=== PATIENT | female | born 1980 | race African-American/Black ===

== ENCOUNTER → 2016-09-18 | Outpatient (CLI) | payer OTHER ==
[2015-05-17 01:00] VITALS: BP 162/98
[~2016-09-18] MED LIST: AMLO2.5T PO; HYDR-2666 PO; METF500T4 PO; NIFE60TA PO; NITR100C62 PO; VALS40TA2 PO
[2016-09-19 18:10] LABS: PROTEIN 24 HR UR 127.7 mg/24 hr (30.0-150.0)
== END | disposition home or self-care (01) ==
LOC: LAB 12:14
PROVIDERS: ATTEND Obstetrics & Gynecology
DX: Z32.01 Encounter for pregnancy test, result positive (principal); O13.9 Gestational [pregnancy-induced] hypertension without significant proteinuria, unspecified trimester
CPT/HCPCS: 36415; 82570; 84156

== ENCOUNTER → 2016-10-23 | Outpatient (CLI) | payer OTHER ==
[2016-10-07 14:53] VITALS: BP 149/96
--- NOTE | 2016-10-23 17:29 | RAD ---
EXAM: Obstetric ultrasound. HISTORY: No heart tones. COMPARISON: None. FINDINGS: Sonographic evaluation of the uterus and fetus was performed transabdominally. There is a single intrauterine fetus measuring 13 weeks 5 days by measurements. No cardiac motion is identified. The placenta is posterior. The cervix is closed and measures 4.1 cm. IMPRESSION: 1. No cardiac motion consistent with demise. These findings were called to Dr. Solorzano by the technologist at the time of the examination.
== END | disposition home or self-care (01) ==
LOC: US 16:26
PROVIDERS: ATTEND Obstetrics & Gynecology
DX: O09.90 Supervision of high risk pregnancy, unspecified, unspecified trimester (principal); E66.9 Obesity, unspecified
CPT/HCPCS: 76805

== ENCOUNTER 2016-10-26 07:51 | Day surgery (SDC) | payer OTHER ==
[~2016-10-26] VITALS: Ht 165.1 cm; Wt 116.1 kg
[~2016-10-26 07:51] MED LIST changes: +CLINDAMYCIN 600MG PREMIX 50 ML IV PRN; +FENTANYL PF 100 MCG/2 ML VIAL. IV PRN; +HYDROMORPHONE 2 MG/ML VIAL. IV PRN; +IV RINGERS,LACTATED 1000ML 1,000 ML IV SCH; +LIDOCAINE 1% 1 ML SYRINGE. ID PRN; -METF500T4 PO; +MORPHINE SULFATE 2 MG/ML DISP.SYRIN. IV PRN; -NIFE60TA PO; +ONDANSETRON PF 4 MG/2 ML VIAL. IV PRN; +OXYTOCIN 10 UNIT/ML VIAL. ONE; +PROCHLORPERAZINE 10 MG/2 ML VIAL. IV PRN; +VASOPRESSIN 20 UNIT/ML VIAL. ONE
[2016-10-26] MEDS ORDERED: METF500T4 PO (08:46)
[2016-10-26] MEDS ORDERED: NIFE60TA PO (08:46)
[2016-10-26] MEDS ORDERED: FENTANYL PF 100 MCG/2 ML VIAL. ONE (09:05)
[2016-10-26] MEDS ORDERED: FAMOTIDINE 20 MG/2 ML VIAL ONE (09:05)
[2016-10-26] MEDS ORDERED: LIDOCAINE 1% PF 5 ML VIAL. ONE (09:05)
[2016-10-26] MEDS ORDERED: ONDANSETRON PF 4 MG/2 ML VIAL. ONE (09:05)
[2016-10-26] MEDS ORDERED: DEXAMETHASONE SOD PHOS 20 MG/5 ML VIAL. ONE (09:05)
[2016-10-26] MEDS ORDERED: MIDAZOLAM HCL 2 MG/2 ML VIAL. ONE (09:05)
[2016-10-26] MEDS ORDERED: PROPOFOL 20 ML IV ONE (09:05)
[2016-10-26 09:10] LABS: BASO % 0 % (0-3); EOS % 1 % (0-3); HEMATOCRIT 35.2 % (36.0-47.0); HEMOGLOBIN 11.6 g/dL (12.0-15.5); LYMPH # 2.2 x10^3/uL (1.0-4.8); LYMPH % 21 % (24-48); MEAN CORPUSCULAR HEMOGLOBIN 27 pg (25-35); MEAN CORPUSCULAR HGB CONC 33 g/dL (31-37); MEAN CORPUSCULAR VOLUME 82 fL (79-100); MONO % 6 % (0-9); NEUT % 72 % (31-73); PLATELET COUNT 302 x10^3/uL (140-400); RED BLOOD COUNT 4.28 x10^6/uL (3.50-5.40); RED CELL DISTRIBUTION WIDTH 13.6 % (11.5-14.5); WHITE BLOOD COUNT 10.5 x10^3/uL (4.0-11.0)
[2016-10-26] MEDS ORDERED: SEVOFLURANE 16 TO 30 MINUTES. IH ONE (09:23)
[2016-10-26] MEDS ORDERED: OXYTOCIN 10 UNIT/ML VIAL. ONE (09:39)
--- NOTE | 2016-10-26 09:54 | PDOC ---
BRIEF OPERATIVE NOTE Pre-Op Diagnosis missed Post-Op Diagnosis same Procedure Performed Suction D&C Surgeon Dr. Solorzano Anesthesia Type: General Blood Loss 300 ml Specimens Obtained POC and blood products Findings 10 wks size uterus with missed Complications none Additional Remarks pt. ELVIRA Lamar Jr, MD Oct 26, 2016 09:54
--- NOTE | 2016-10-26 09:54 | DISCH ---
DISCHARGE INSTRUCTIONS Condition on Discharge Condition on Discharge: Stable Activity After Discharge Activity Instructions for Disc: Activity as tolerated Lifting Instructions after Dis: No heavy lifting Driving Instructions after Dis: Do not drive today Diet after Discharge Diet after Discharge: Diabetic No Calorie Level Contacting the DRMichela after DC Call your doctor for: Concerns you may have Follow-Up Follow up with: Dr. Solorzano in 1 week. ELVIRA SOLORZANO Jr, MD Oct 26, 2016 09:54
[2016-10-26] MEDS: FENTANYL PF 100 MCG/2 ML VIAL. IV PRN ×2 (09:58→10:03)
--- NOTE | 2016-10-26 10:34 | OP ---
DATE OF SURGERY: PREOPERATIVE DIAGNOSIS: Missed . POSTOPERATIVE DIAGNOSIS: Missed . PROCEDURE: Suction D and C. SURGEON: Dr. Solorzano. ANESTHESIA: GETA. ESTIMATED BLOOD LOSS: 300 mL. COMPLICATIONS: None. FINDINGS: A ____week size uterus with missed and products of conception with blood products. SUMMARY: A 36-year-old 5, para 4 and ____ weeks by sonogram, presented to clinic. She was found to have no cardiac activity. This was verified by Radiology sonogram. The patient was counseled on risks, benefits and expectations of suction D and C. She voiced a clear understanding to proceed. DESCRIPTION OF PROCEDURE: The patient was taken to surgery suite and placed in dorsal lithotomy position. She was prepped with Betadine, draped in sterile fashion. After adequate anesthesia, weighted speculum was placed vaginally. The anterior lip of the cervix grasped with a single tooth tenaculum. The cervix was then dilated with Catherine dilators up to size 11. A 12-tip curved curette was utilized and with the suction of 60 cm Hg. It was placed through the cervix and rotated in a circumferential manner, removing products of conception as well as blood products and blood clot. Sharp curettage took place until a fine gritty surface was palpated circumferentially. The suction curette was once again used and rotated in a circumferential manner. Suction curette was then removed. Uterus palpated firm. Single tooth tenaculum was removed. Weighted speculum was removed. The patient tolerated the procedure, was taken to recovery room in stable condition. Sponge and needle count correct x 3. ELVIRA SOLORZANO MD DR: DOROTA/trevor JOB#: [id number] / [id number]
[2016-10-26] MEDS ORDERED: OXYCODONE/APAP 5/325 TABLET. PO PRN (11:00)
[2016-10-26 11:10] VITALS: BP 153/92
--- NOTE | 2016-10-27 15:19 | PATHOLOGY ---
PATHOLOGY REPORT * * * * * * * * FINAL DIAGNOSIS: Uterine contents, suction D and C: - Products of conception, comprised of parts, placental membranous tissue, immature chorionic villi showing focal degenerative changes, and decidual tissue showing focal hemorrhage and necrosis. (JPM:; d/t: 10/27/16) REPORT ELECTRONICALLY SIGNED BY: Homero Hamilton M.D. DATE/TIME: 10/27/2016 15:18 * * * * * * * * GROSS PATHOLOGY: The specimen is received in formalin, labeled "Riya Valero and products of conception." Received is a 21.2 x 3.8 x 3.3 cm aggregate of pink-forde, membranous, and villous appearing soft tissue fragments admixed with clotted blood. Multiple parts are grossly identified, which are consistent with both arms, both legs, ribs, spine, intestines, and umbilical cord. Apple Picking Supervisor sections (not parts) are submitted in cassettes A1-A3. (TTL; 10/26/2016) INITIAL CPT CODE(S): A; 05060 Professional services performed by [facility] [place] [address] Technical services performed by [facility] at [address] [place] [address], [address], [place] [address]. SPECIMEN(S) RECEIVED: A.Products of conception CLINICAL HISTORY: Missed PATIENT: RIYA VALERO /AGE: 7 1980 (Age: 36) PATIENT #: [id number] ALT CASE #: SPECIMEN COLLECTION DATE: 10/26/2016 SPECIMEN RECEIVED DATE: 10/26/2016 [facility] - [address] [place] [address] - PHONE: [phone] * * * END OF REPORT * * *
== END 2016-10-26 11:15 | disposition home or self-care (01) ==
LOC: SURG 07:51
PROVIDERS: ATTEND Obstetrics & Gynecology
DX: O02.1 Missed abortion (principal); I10 Essential (primary) hypertension; E66.9 Obesity, unspecified; Z87.440 Personal history of urinary (tract) infections; E11.9 Type 2 diabetes mellitus without complications; F41.9 Anxiety disorder, unspecified; F32.9 Major depressive disorder, single episode, unspecified
CPT/HCPCS: 36415; 59820; 82947; 85027; 86850; 86900; 86901; J1100; J2250; J2405; J2590; J2704; J3010; J3490; S0028

== ENCOUNTER → 2018-05-28 | Outpatient (CLI) | payer OTHER ==
[~2018-05-28] MED LIST changes: -AMLO2.5T PO; +AMLO2.5T3 PO; -CLINDAMYCIN 600MG PREMIX 50 ML IV PRN; -FENTANYL PF 100 MCG/2 ML VIAL. IV PRN; -HYDR-2666 PO; +HYDR-2758 PO; -HYDROMORPHONE 2 MG/ML VIAL. IV PRN; -IV RINGERS,LACTATED 1000ML 1,000 ML IV SCH; -LIDOCAINE 1% 1 ML SYRINGE. ID PRN; +METF500T16 PO; -MORPHINE SULFATE 2 MG/ML DISP.SYRIN. IV PRN; +NIFE60TA PO; -ONDANSETRON PF 4 MG/2 ML VIAL. IV PRN; -OXYTOCIN 10 UNIT/ML VIAL. ONE; -PROCHLORPERAZINE 10 MG/2 ML VIAL. IV PRN; -VASOPRESSIN 20 UNIT/ML VIAL. ONE
--- NOTE | 2018-05-28 08:40 | RAD ---
Renal ultrasound, 05/28/2018: HISTORY: Hypertension The right kidney measures 11.0 cm in length while the left kidney measures 11.4 cm. There is no evidence of hydronephrosis or a renal mass. The renal parenchymal echogenicity is within normal limits. Limited views of the poorly distended urinary bladder show no abnormality. IMPRESSION: No significant renal abnormality is detected. Deep Doppler renal ultrasound, 05/28/2018: HISTORY: Hypertension Deep Doppler interrogation of the main renal arteries was performed including grayscale, color-flow and spectral Doppler analysis. The peak systolic velocity in the right main renal artery is 127 cm/s. The right renal artery to aortic velocity ratio is 1.04. On the left the peak systolic velocity is 88 cm/s. These findings do not suggest significant renal artery stenosis. No parvus/tardus phenomena is evident. IMPRESSION: No duplex evidence of significant main renal artery stenosis. Electronically signed by: Rafael De La Cruz MD (05/28/2018 8:37 AM) [facility]
== END | disposition home or self-care (01) ==
LOC: US 07:14
PROVIDERS: ATTEND Internal Medicine
DX: I10 Essential (primary) hypertension (principal)
CPT/HCPCS: 76770; 93975

== ENCOUNTER 2018-07-02 07:03 | Emergency (ER) | payer OTHER ==
[~2018-07-02] VITALS: Ht 165.1 cm; Wt 90.7 kg
[2018-07-02 07:48] LABS: U PREG PATIENT NEGATIVE (NEG)
--- NOTE | 2018-07-02 07:56 | PHYS DOC ---
Past Medical History Past Medical History: Anxiety, Depression, Diabetes-Type II, Hypertension Additional Past Medical Histor: PTSD Past Surgical History: Gastric Bypass Additional Past Surgical Histo: Gastric Bypass 6 months ago Alcohol Use: None Drug Use: None Adult General Chief Complaint Chief Complaint: BLOOD IN URINE [facility] HPI Patient is a 38 year old female who presents with hematuria. Patient states she awoke this morning at baseline health. When she used the bathroom, she noted shiraz blood in her urine. She had 2 additional episodes since she woke up also that she describes to be frankly bloody. She does not have abdominal or pelvic pain. Her last menstrual cycle was 10 days ago. She feels confident that the blood is in her urine and not from a vaginal source. She has no flank pain. No fever or chills. The patient does have known high blood pressure. She has been evaluated by her primary care physician for proteinuria. She has undergone ultrasound. She also states she was treated for a urinary tract infection one month earlier with a course of Bactrim. Review of Systems Review of Systems Constitutional: Denies fever or chills Eyes: Denies HENT: Denies Respiratory: Denies cough Cardiovascular: No additional information not addressed in HPI GI: Denies abdominal pain, nausea : Denies dysuria Musculoskeletal: Denies back pain Integument: Denies rash or skin lesions Neurologic: Denies headache All other systems were reviewed and found to be within normal limits, except as documented in this note. Current Medications Current Medications Current Medications Medications (Trade) Dose Ordered Sig/Dania Start Time Stop Time Status Last Admin Dose Admin Sodium Chloride 1,000 ml @ 1,000 mls/hr 1X ONCE 07/02/18 08:00 07/02/18 08:59 DC 07/02/18 08:08 1,000 MLS/HR Allergies Allergies Allergies Coded Allergies Type Severity Reaction Last Updated Verified Penicillins Allergy Intermediate hives 10/26/16 Yes Physical Exam Physical Exam Constitutional: Well developed, well nourished, no acute distress, non-toxic appearance HENT: Normocephalic, atraumatic, bilateral external ears normal, oropharynx moist Neck: Normal range of motion Cardiovascular:Heart rate regular rhythm, no murmur Lungs & Thorax: Bilateral breath sounds clear to auscultation Abdomen: Bowel sounds normal, soft, no tenderness Skin: Warm, dry, no erythema Back: No tenderness, no CVA tenderness Extremities: No tenderness Neurologic: Alert and oriented X 3 Current Patient Data Vital Signs Vital Signs Date Time Temp Pulse Resp B/P (MAP) Pulse Ox O2 Delivery O2 Flow Rate FiO2 07/02/18 08:17 68 18 166/96 (119) 97 07/02/18 07:28 98.5 Room Air 98.5 Lab Values Laboratory Tests Test 07/02/18 07:10 07/02/18 07:50 Urine Collection Type Clean catch Urine Color Red Urine Clarity Turbid Urine pH Urine Specific [place] 1.030 Urine Protein mg/dL (NEG-TRACE) Urine Glucose (UA) mg/dL (NEG) Urine Ketones (Stick) mg/dL (NEG) Urine Blood (NEG) Urine Nitrite (NEG) Urine Bilirubin (NEG) Urine Urobilinogen Dipstick mg/dL (0.2 mg/dL) Urine Leukocyte Esterase (NEG) Urine RBC Tntc /HPF (0-2) Urine WBC 5-10 /HPF (0-4) Urine Squamous Epithelial Cells Mod /LPF Urine Bacteria Many /HPF (0-FEW) Urine Mucus Mod /LPF Urine Test Negative (NEG) White Blood Count 8.4 x10^3/uL (4.0-11.0) Red Blood Count 4.32 x10^6/uL (3.50-5.40) Hemoglobin 12.2 g/dL (12.0-15.5) Hematocrit 36.6 % (36.0-47.0) Mean Corpuscular Volume 85 fL (79-100) Mean Corpuscular Hemoglobin 28 pg (25-35) Mean Corpuscular Hemoglobin Concent 33 g/dL (31-37) Red Cell Distribution Width 14.4 % (11.5-14.5) Platelet Count 380 x10^3/uL (140-400) Neutrophils (%) (Auto) 62 % (31-73) Lymphocytes (%) (Auto) 30 % (24-48) Monocytes (%) (Auto) 6 % (0-9) Eosinophils (%) (Auto) 2 % (0-3) Basophils (%) (Auto) 1 % (0-3) Neutrophils # (Auto) 5.2 x10^3uL (1.8-7.7) Lymphocytes # (Auto) 2.5 x10^3/uL (1.0-4.8) Monocytes # (Auto) 0.5 x10^3/uL (0.0-1.1) Eosinophils # (Auto) 0.1 x10^3/uL (0.0-0.7) Basophils # (Auto) 0.1 x10^3/uL (0.0-0.2) Sodium Level 144 mmol/L (136-145) Potassium Level 4.0 mmol/L (3.5-5.1) Chloride Level 106 mmol/L (98-107) Carbon Dioxide Level 30 mmol/L (21-32) Anion Gap 8 (6-14) Blood Urea Nitrogen 14 mg/dL (7-20) Creatinine 0.7 mg/dL (0.6-1.0) Estimated GFR (Cockcroft-Gault) 114.6 Glucose Level 117 mg/dL (70-99) H Calcium Level 9.3 mg/dL (8.5-10.1) Laboratory Tests 07/02/18 07:50 Laboratory Tests 07/02/18 07:50 EKG EKG [] Radiology/Procedures Radiology/Procedures [] Course & Med Decision Making Course & Med Decision Making Pertinent Labs and Imaging studies reviewed. (See chart for details) patient is seen and examined. Normal physical exam. UA, BMP, CBC ordered. 10:05: All results are reviewed. Creatinine is normal range. Urinalysis was frankly bloody which did interfere with dipstick testing. Microscopic exam revealed many bacteria. 5-10 WBCs. Moderate squamous epithelials. It is unclear if this truly represents infection. Urine culture is sent to the lab. Patient is empirically placed on Levaquin over the next 5 days. She is provided urology phone number to follow up with. She will come back to the ER for any new or worsening symptoms between now and her follow-up appointment. Dragon Disclaimer Dragon Disclaimer This electronic medical record was generated, in whole or in part, using a voice recognition dictation system. Departure Departure Referrals: TIARRA HUMPHRIES MD (PCP) Scripts Levofloxacin (LEVAQUIN) 500 Mg Tablet 500 MG PO DAILY for 5 Days, #5 TAB Prov: AFUA WILHELM DO 07/02/18 AFUA WILHELM DO Jul 02, 2018 07:56
[2018-07-02 08:00] LABS: BASO # 0.1 x10^3/uL (0.0-0.2); BASO % 1 % (0-3); EOS # 0.1 x10^3/uL (0.0-0.7); EOS % 2 % (0-3); HEMATOCRIT 36.6 % (36.0-47.0); HEMOGLOBIN 12.2 g/dL (12.0-15.5); LYMPH # 2.5 x10^3/uL (1.0-4.8); LYMPH % 30 % (24-48); MEAN CORPUSCULAR HEMOGLOBIN 28 pg (25-35); MEAN CORPUSCULAR HGB CONC 33 g/dL (31-37); MEAN CORPUSCULAR VOLUME 85 fL (79-100); MONO # 0.5 x10^3/uL (0.0-1.1); MONO % 6 % (0-9); NEUT # 5.2 x10^3uL (1.8-7.7); NEUT % 62 % (31-73); PLATELET COUNT 380 x10^3/uL (140-400); RED BLOOD COUNT 4.32 x10^6/uL (3.50-5.40); RED CELL DISTRIBUTION WIDTH 14.4 % (11.5-14.5); WHITE BLOOD COUNT 8.4 x10^3/uL (4.0-11.0)
[2018-07-02] MEDS ORDERED: IV NORMAL SALINE 1000ML BAG 1,000 ML IV ONE (08:00)
[2018-07-02 08:09] LABS: CALCIUM 9.3 mg/dL (8.5-10.1); CREATININE 0.7 mg/dL (0.6-1.0); GFR 114.6
[2018-07-02 09:19] LABS: CLARITY,URINE TURBID; COLOR,URINE RED
[2018-07-02 09:37] LABS: BACTERIA,URINE MANY /HPF (0-FEW); RBC,URINE TNTC /HPF (0-2); SQUAMOUS EPITHELIAL CELL,UR MOD /LPF
[2018-07-02 09:45] VITALS: BP 162/91
[2018-07-02] MEDS ORDERED: LEVO500T59 PO (09:51)
== END 2018-07-02 10:10 | disposition home or self-care (01) ==
LOC: ER 07:03
DX: R31.9 Hematuria, unspecified (principal); E11.9 Type 2 diabetes mellitus without complications; I10 Essential (primary) hypertension; Z98.84 Bariatric surgery status; Z88.0 Allergy status to penicillin
CPT/HCPCS: 36415; 80048; 81001; 81025; 85025; 99284; J7030; 87086

== ENCOUNTER 2018-10-14 16:46 | Emergency (ER) | payer OTHER ==
[~2018-10-14] VITALS: Ht 165.1 cm; Wt 86.2 kg
[~2018-10-14 16:46] MED LIST changes: -AMLO2.5T3 PO; +AMLO2.5T5 PO; -HYDR-2758 PO; +HYDR-2761 PO; +LEVO500T59 PO
--- NOTE | 2018-10-14 17:34 | PHYS DOC ---
Past Medical History Past Medical History: Anxiety, Depression, Diabetes-Type II, Hypertension Additional Past Medical Histor: PTSD Past Surgical History: Other Additional Past Surgical Histo: Gastric sleeve Alcohol Use: Occasionally Drug Use: None Adult General Chief Complaint Chief Complaint: ABDOMINAL PAIN HPI HPI 38-year-old female presents to ER for complaints of diffuse abd pain with nausea and vomiting today. Patient states she is seen by her surgeon who had done her gastric sleeve last year and had CT abdomen and pelvis done and was sent to the ER with reports that she had possible ruptured cyst. Review of Systems Review of Systems Constitutional: Denies fever or chills [] Eyes: Denies change in visual acuity, redness, or eye pain [] HENT: Denies nasal congestion or sore throat [] Respiratory: Denies cough or shortness of breath [] Cardiovascular: No additional information not addressed in HPI [] GI: Denies bloody stools or diarrhea. Reports diffuse abd pain w/increased pain lt lower abd/groin area- reports intermittent N/V : Denies dysuria or hematuria [] Musculoskeletal: Denies back pain or joint pain [] Integument: Denies rash or skin lesions [] Neurologic: Denies headache, focal weakness or sensory changes [] All other systems were reviewed and found to be within normal limits, except as documented in this note. Current Medications Current Medications Current Medications Medications (Trade) Dose Ordered Sig/Dania Start Time Stop Time Status Last Admin Dose Admin Acetaminophen/ Hydrocodone Bitart (Lortab 5/325) 1 tab 1X ONCE 10/14/18 18:45 10/14/18 18:46 DC 10/14/18 18:58 1 TAB Fentanyl Citrate (Fentanyl 2ml Vial) 25 mcg 1X ONCE 10/14/18 17:45 10/14/18 17:46 DC 10/14/18 17:54 25 MCG Sodium Chloride 1,000 ml @ 1,000 mls/hr 1X ONCE 10/14/18 17:45 10/14/18 18:44 DC 10/14/18 17:54 1,000 MLS/HR Allergies Allergies Allergies Coded Allergies Type Severity Reaction Last Updated Verified Penicillins Allergy Intermediate hives 10/26/16 Yes Physical Exam Physical Exam Constitutional: Well developed, well nourished, no acute distress, non-toxic appearance. [] HENT: Normocephalic, atraumatic, oropharynx moist, nose normal. [] Eyes: Pupils equal, conjunctiva normal, no discharge. [] Neck: Normal range of motion, no tenderness, supple, no stridor. [] Cardiovascular: Heart rate regular rhythm, no murmur [] Lungs & Thorax: Bilateral breath sounds clear to auscultation. Resp. equal/ nonlabored Abdomen: Bowel sounds normal, soft- diffuse tenderness in all abd with increased pain lt lower- no distention/rigidity, no masses, no pulsatile masses. [] Skin: Warm, dry, no erythema, no rash. [] Back: No tenderness, no CVA tenderness. [] Extremities: No tenderness, no cyanosis, no clubbing, ROM intact, no edema. [] Neurologic: Alert and oriented X 3, normal motor function, normal sensory function, no focal deficits noted. [] Psychologic: Affect normal, judgement normal, mood normal. [] Current Patient Data Vital Signs Vital Signs Date Time Temp Pulse Resp B/P (MAP) Pulse Ox O2 Delivery O2 Flow Rate FiO2 10/14/18 19:32 78 132/91 (105) 100 Room Air 10/14/18 17:05 98.6 16 98.6 Lab Values Laboratory Tests Test 10/14/18 17:00 10/14/18 17:35 10/14/18 17:55 Urine Collection Type Unknown Urine Color Yellow Urine Clarity Clear Urine pH 6.0 Urine Specific [place] >=1.030 Urine Protein Negative mg/dL (NEG-TRACE) Urine Glucose (UA) Negative mg/dL (NEG) Urine Ketones (Stick) Negative mg/dL (NEG) Urine Blood Small (NEG) Urine Nitrite Negative (NEG) Urine Bilirubin Negative (NEG) Urine Urobilinogen Dipstick 1.0 mg/dL (0.2 mg/dL) Urine Leukocyte Esterase Small (NEG) Urine RBC 6-10 /HPF (0-2) Urine WBC 5-10 /HPF (0-4) Urine Squamous Epithelial Cells Many /LPF Urine Bacteria Few /HPF (0-FEW) Urine Test Negative (NEG) White Blood Count 12.8 x10^3/uL (4.0-11.0) H Red Blood Count 4.55 x10^6/uL (3.50-5.40) Hemoglobin 12.6 g/dL (12.0-15.5) Hematocrit 38.2 % (36.0-47.0) Mean Corpuscular Volume 84 fL (79-100) Mean Corpuscular Hemoglobin 28 pg (25-35) Mean Corpuscular Hemoglobin Concent 33 g/dL (31-37) Red Cell Distribution Width 13.3 % (11.5-14.5) Platelet Count 375 x10^3/uL (140-400) Neutrophils (%) (Auto) 70 % (31-73) Lymphocytes (%) (Auto) 23 % (24-48) L Monocytes (%) (Auto) 6 % (0-9) Eosinophils (%) (Auto) 1 % (0-3) Basophils (%) (Auto) 1 % (0-3) Neutrophils # (Auto) 8.9 x10^3uL (1.8-7.7) H Lymphocytes # (Auto) 3.0 x10^3/uL (1.0-4.8) Monocytes # (Auto) 0.7 x10^3/uL (0.0-1.1) Eosinophils # (Auto) 0.1 x10^3/uL (0.0-0.7) Basophils # (Auto) 0.1 x10^3/uL (0.0-0.2) Sodium Level 138 mmol/L (136-145) Potassium Level 3.1 mmol/L (3.5-5.1) L Chloride Level 99 mmol/L (98-107) Carbon Dioxide Level 26 mmol/L (21-32) Anion Gap 13 (6-14) Blood Urea Nitrogen 20 mg/dL (7-20) Creatinine 0.8 mg/dL (0.6-1.0) Estimated GFR (Cockcroft-Gault) 98.2 BUN/Creatinine Ratio 25 (6-20) H Glucose Level 118 mg/dL (70-99) H Calcium Level 10.0 mg/dL (8.5-10.1) Total Bilirubin 0.5 mg/dL (0.2-1.0) Aspartate Amino Transferase (AST) 16 U/L (15-37) Alanine Aminotransferase (ALT) 21 U/L (14-59) Alkaline Phosphatase 77 U/L (46-116) Total Protein 8.4 g/dL (6.4-8.2) H Albumin 3.6 g/dL (3.4-5.0) Albumin/Globulin Ratio 0.8 (1.0-1.7) L Lipase 110 U/L (73-393) Lactic Acid Level 1.2 mmol/L (0.4-2.0) Laboratory Tests 10/14/18 17:35 Laboratory Tests 10/14/18 17:35 EKG EKG [] Radiology/Procedures Radiology/Procedures [PROCEDURE: PELVIS W/TV PELVIS W/TV History: Lower abdominal pain, abnormal CT Comparison: CT exam the same day Findings: Multiple transabdominal sonographic images of pelvis are submitted. Uterus measured 8.9 x 4.9 x 6.6 cm. Endometrium measured 0.6 cm. Right ovary measured 3.8 x 1.8 x 3.1 cm with normal low resistance vascularity. Left ovary measured 4.6 x 2.7 x 3.6 cm, normal low resistance vascularity. Transvaginal ultrasound: Multiple transvaginal sonographic images of the pelvis are submitted. Uterus measured 9.3 x 5 x 6.7 cm. Endometrium measured up to 1.8 cm. Right ovary measured 3.5 x 1.9 x 2.2 cm with normal low resistance vascularity. Left ovary measured 6.2 x 3.1 x 3.9 cm. There is a focus of different heterogeneous echogenicity of the left ovary about 3.2 x 5.3 x 2.8 cm, fairly diffuse internal echoes. There is normal color flow and low resistance vascularity of the left ovary. There is mild free fluid. Impression: 1. There is a heterogeneous focus of echogenicity of the left ovary probably due to hemorrhagic cyst. There is minimal free fluid. Given internal echoes/complexity, short-term interval follow-up imaging such as in 2-3 months is recommended. Electronically signed by: Angeles Juares MD (10/14/2018 8:24 PM) [facility] DICTATED and SIGNED BY: ANGELES JUARES MD DATE: 10/14/182020 Course & Med Decision Making Course & Med Decision Making Pertinent Labs and Imaging studies reviewed. (See chart for details) CT abd/pelvis with PO and IV contrast done at [facility] was sent via cloud and report faxed to this facility per pt's verbal permission. Report noted "1. Lt corpus luteum cyst w/hyperdense pelvic fld suggesting rupture of hemorrhagic cyst. 2. Otherwise normal CT abd and pelvis. Specifically, normal appendix, no cholelithiasis and no urolithiasis". In the body of report noted "esophagus, stomach and intestine: normal bowel caliber without obstruction". Liver , GB, spleen, and pancreas all noted to be "normal". During initial exam discussed pelvic exam for further evaluation/testing- pt has no concerns for STDs and is not wanting to have pelvic while in ER. 2030: Discussed test with patient. Patient reports her pain has improved since receiving treatments while in the ER. She is smiling with family at bedside and in no visible distress. Discussed plans for her to follow-up with her [facility] for further care and reevaluation. Pt had 3.1 K+ and so discussed providing dose of K+ while in ER- she states she has K+ supplement at home as she has had low K+ in past. She states she hasn't taken recently but will when she gets home. UA neg. ketones/nitrates sm. blood which she reports she has had in the past sm. leuks micro showing 5-10 WBCs with many squam. cells and bacteria probable contaminated specimen. UCG neg. WBCs 12.8 no bands- possibly d/t stress as pt was in mild distress on arrival reporting pain has been severe since onset earlier today. Pt is planning to call her [facility] tomorrow to schedule f/u appt. Will provide with [facility] and she was advised on Ibuprofen use PRN. Education provided on s&s to return to ER for and discharge instructions were discussed. Dragon Disclaimer Dragon Disclaimer This electronic medical record was generated, in whole or in part, using a voice recognition dictation system. Departure Departure Impression: Primary Impression: Abdominal pain Additional Impression: Ruptured cyst of ovary Disposition: HOME, SELF-CARE Condition: STABLE Referrals: TIARRA HUMPHRIES MD (PCP) Patient Instructions: Abdominal Pain, Ovarian Cyst Additional Instructions: Ibuprofen as needed for pain as directed on container. Warm compress to left lower abdomen for 20-30 minutes at a time every 3-4 hours for pain. Follow-up with [facility]- call tomorrow and schedule appointment for further care and re-evaluation. Scripts Hydrocodone/Apap 5-325 (NORCO 5-325 TABLET) 1 Each Tablet 1 TAB PO PRN Q6HRS PRN for PAIN, #8 TAB 0 Refills Don't drink alcohol or drive while on this medication Prov: JONATHON TRINH APRN 10/14/18 Problem Qualifiers JONATHON TRINH APRN Oct 14, 2018 17:34
[2018-10-14 17:42] LABS: BILIRUBIN,URINE NEGATIVE (NEG); CLARITY,URINE CLEAR; COLOR,URINE YELLOW; NITRITE,URINE NEGATIVE (NEG); PROTEIN,URINE NEGATIVE (NEG-TRACE)
[2018-10-14] MEDS ORDERED: IV NORMAL SALINE 1000ML BAG 1,000 ML IV ONE (17:45)
[2018-10-14] MEDS ORDERED: fentaNYL PF VIAL 100 MCG/2 ML VIAL IV ONE (17:45)
[2018-10-14 17:46] LABS: BASO # 0.1 x10^3/uL (0.0-0.2); BASO % 1 % (0-3); EOS # 0.1 x10^3/uL (0.0-0.7); EOS % 1 % (0-3); HEMATOCRIT 38.2 % (36.0-47.0); HEMOGLOBIN 12.6 g/dL (12.0-15.5); LYMPH % 23 % (24-48); MEAN CORPUSCULAR HEMOGLOBIN 28 pg (25-35); MEAN CORPUSCULAR HGB CONC 33 g/dL (31-37); MEAN CORPUSCULAR VOLUME 84 fL (79-100); MONO # 0.7 x10^3/uL (0.0-1.1); MONO % 6 % (0-9); NEUT # 8.9 x10^3uL (1.8-7.7); NEUT % 70 % (31-73); PLATELET COUNT 375 x10^3/uL (140-400); RED BLOOD COUNT 4.55 x10^6/uL (3.50-5.40); RED CELL DISTRIBUTION WIDTH 13.3 % (11.5-14.5); WHITE BLOOD COUNT 12.8 x10^3/uL (4.0-11.0)
[2018-10-14 17:47] LABS: BACTERIA,URINE FEW /HPF (0-FEW); SQUAMOUS EPITHELIAL CELL,UR MANY /LPF
[2018-10-14 17:58] LABS: CREATININE 0.8 mg/dL (0.6-1.0); GFR 98.2; POTASSIUM 3.1 mmol/L (3.5-5.1)
[2018-10-14 18:04] LABS: ALBUMIN 3.6 g/dL (3.4-5.0); ALBUMIN/GLOBULIN RATIO 0.8 (1.0-1.7); TOTAL BILIRUBIN 0.5 mg/dL (0.2-1.0); TOTAL PROTEIN 8.4 g/dL (6.4-8.2)
[2018-10-14 18:34] LABS: U PREG PATIENT NEGATIVE (NEG)
[2018-10-14] MEDS ORDERED: HYDROcodone/APAP 5/325MG 1 TAB TABLET PO ONE (18:45)
--- NOTE | 2018-10-14 20:29 | RAD ---
PELVIS W/TV History: Lower abdominal pain, abnormal CT Comparison: CT exam the same day Findings: Multiple transabdominal sonographic images of pelvis are submitted. Uterus measured 8.9 x 4.9 x 6.6 cm. Endometrium measured 0.6 cm. Right ovary measured 3.8 x 1.8 x 3.1 cm with normal low resistance vascularity. Left ovary measured 4.6 x 2.7 x 3.6 cm, normal low resistance vascularity. Transvaginal ultrasound: Multiple transvaginal sonographic images of the pelvis are submitted. Uterus measured 9.3 x 5 x 6.7 cm. Endometrium measured up to 1.8 cm. Right ovary measured 3.5 x 1.9 x 2.2 cm with normal low resistance vascularity. Left ovary measured 6.2 x 3.1 x 3.9 cm. There is a focus of different heterogeneous echogenicity of the left ovary about 3.2 x 5.3 x 2.8 cm, fairly diffuse internal echoes. There is normal color flow and low resistance vascularity of the left ovary. There is mild free fluid. Impression: 1. There is a heterogeneous focus of echogenicity of the left ovary probably due to hemorrhagic cyst. There is minimal free fluid. Given internal echoes/complexity, short-term interval follow-up imaging such as in 2-3 months is recommended. Electronically signed by: Nick Bond MD (10/14/2018 8:24 PM) [facility]
[2018-10-14 20:46] VITALS: BP 128/67
[2018-10-14] MEDS ORDERED: HYDR-3164 PO (20:47)
== END 2018-10-14 20:51 | disposition home or self-care (01) ==
LOC: ER 16:46
DX: N83.202 Unspecified ovarian cyst, left side (principal); R11.2 Nausea with vomiting, unspecified; F41.9 Anxiety disorder, unspecified; F32.9 Major depressive disorder, single episode, unspecified; E11.9 Type 2 diabetes mellitus without complications; I10 Essential (primary) hypertension; Z88.0 Allergy status to penicillin
CPT/HCPCS: 36415; 76830; 76856; 80053; 81001; 81025; 83605; 83690; 85025; 87086; 96361; 96374; 99284; J3010; J7030

== ENCOUNTER 2018-12-01 12:19 | Emergency (ER) | payer OTHER ==
[~2018-12-01] VITALS: Ht 165.1 cm; Wt 90.7 kg
[~2018-12-01 12:19] MED LIST changes: +HYDR-3164 PO
[2018-12-01] MEDS ORDERED: ONDANSETRON PF 4 MG/2 ML VIAL. IV ONE (13:30)
[2018-12-01] MEDS ORDERED: IV NORMAL SALINE 1000ML BAG 1,000 ML IV ONE (13:30)
[2018-12-01] MEDS ORDERED: MORPHINE SULFATE 4 MG/ML VIAL. IV ONE (13:30)
[2018-12-01 13:48] LABS: BASO # 0.1 x10^3/uL (0.0-0.2); BASO % 1 % (0-3); EOS # 0.1 x10^3/uL (0.0-0.7); EOS % 1 % (0-3); HEMATOCRIT 36.6 % (36.0-47.0); HEMOGLOBIN 11.8 g/dL (12.0-15.5); LYMPH # 2.4 x10^3/uL (1.0-4.8); LYMPH % 22 % (24-48); MEAN CORPUSCULAR HEMOGLOBIN 28 pg (25-35); MEAN CORPUSCULAR HGB CONC 32 g/dL (31-37); MEAN CORPUSCULAR VOLUME 86 fL (79-100); MONO # 0.7 x10^3/uL (0.0-1.1); MONO % 6 % (0-9); NEUT % 71 % (31-73); PLATELET COUNT 325 x10^3/uL (140-400); RED BLOOD COUNT 4.25 x10^6/uL (3.50-5.40); RED CELL DISTRIBUTION WIDTH 13.7 % (11.5-14.5); WHITE BLOOD COUNT 11.3 x10^3/uL (4.0-11.0)
[2018-12-01 13:59] LABS: CREATININE 0.8 mg/dL (0.6-1.0); GFR 98.2; POTASSIUM 3.9 mmol/L (3.5-5.1)
[2018-12-01 14:05] LABS: ALBUMIN 3.3 g/dL (3.4-5.0); ALBUMIN/GLOBULIN RATIO 0.8 (1.0-1.7); TOTAL BILIRUBIN 0.6 mg/dL (0.2-1.0); TOTAL PROTEIN 7.2 g/dL (6.4-8.2)
[2018-12-01] MEDS ORDERED: IOHEXOL 300 MG/ML 100ML VIAL. IV ONE (14:45)
[2018-12-01] MEDS ORDERED: CONTRAST GIVEN. MC PRN (14:45)
[2018-12-01 15:10] LABS: BILIRUBIN,URINE NEGATIVE (NEG); CLARITY,URINE CLOUDY; COLOR,URINE YELLOW; NITRITE,URINE NEGATIVE (NEG); PROTEIN,URINE NEGATIVE (NEG-TRACE)
[2018-12-01 15:16] LABS: BACTERIA,URINE MODERATE /HPF (0-FEW); SQUAMOUS EPITHELIAL CELL,UR MOD /LPF
[2018-12-01 15:17] LABS: RBC,URINE 0 /HPF (0-2)
--- NOTE | 2018-12-01 15:19 | PHYS DOC ---
Past Medical History Past Medical History: Anxiety, Depression, Diabetes-Type II, Hypertension Additional Past Medical Histor: PTSD (ROSLYN TAYLOR APRN) Past Surgical History: Other Additional Past Surgical Histo: Gastric sleeve (ROSLYN TAYLOR APRN) Alcohol Use: Occasionally Drug Use: None (ROSLYN TAYLOR APRN) Adult General Chief Complaint Chief Complaint: ABDOMINAL PAIN HPI HPI Patient is a 38 year old AA female who presents to the ER with complaints of upper abdominal pain since approximately 940 this morning. She denies any nausea , vomiting, diarrhea, back pain, dysuria, hematuria, increased urinary frequency , or fever. She currently rates the pain in her upper abdomen a 7 out of 10 on the pain scale and describes the pain as pressure. She denies any alleviating or exacerbating factors. She states that the pain began after taking her morning medications. She denies any burning or acid reflux. Patient reported she nurse that she had a D&C approximately 2 weeks ago at 9 weeks of gestation. The only surgical history the patient reported to myself is a gastric sleeve that was done in January 2018. She reports a history of high blood pressure and obesity she denies any other health problems. (ROSLYN TAYLOR APRN) Review of Systems Review of Systems Constitutional: Denies fever or chills [] Eyes: Denies changes HENT: Denies nasal congestion or sore throat [] Respiratory: Denies cough or shortness of breath [] Cardiovascular: No additional information not addressed in HPI [] GI: see HPI : Denies dysuria or hematuria, see HPI [] Musculoskeletal: Denies back pain Integument: Denies rash or skin lesions [] Neurologic: Denies headach (ROSLYN TAYLOR APRN) Current Medications Current Medications Current Medications Medications (Trade) Dose Ordered Sig/Dania Start Time Stop Time Status Last Admin Dose Admin Info (CONTRAST GIVEN -- Rx MONITORING) 1 each PRN DAILY PRN 12/01/18 14:45 12/03/18 14:44 Iohexol (Omnipaque 300 Mg/ml) 75 ml 1X ONCE 12/01/18 14:45 12/01/18 14:46 DC Morphine Sulfate (Morphine Sulfate) 4 mg 1X ONCE 12/01/18 13:30 12/01/18 13:40 DC 12/01/18 14:05 4 MG Ondansetron HCl (Zofran) 4 mg 1X ONCE 12/01/18 13:30 12/01/18 13:40 DC 12/01/18 14:05 4 MG Sodium Chloride 1,000 ml @ 1,000 mls/hr 1X ONCE 12/01/18 13:30 12/01/18 14:29 DC 12/01/18 14:06 1,000 MLS/HR (ANASTASIYA HOLMAN MD) Allergies Allergies Allergies Coded Allergies Type Severity Reaction Last Updated Verified Penicillins Allergy Intermediate hives 10/26/16 Yes (ANASTASIYA HOLMAN MD) Physical Exam Physical Exam Constitutional: Well developed, well nourished, no acute distress, non-toxic appearance, obese [] HENT: Normocephalic, atraumatic, bilateral external ears normal, oropharynx moist, nose normal. [] Eyes: conjunctiva normal, no discharge. [] Neck: Normal range of motion, no stridor. [] Cardiovascular:Heart rate regular rhythm, no murmur [] Lungs & Thorax: Bilateral breath sounds clear to auscultation [] Abdomen: Bowel sounds normal, soft, epigastric tenderness, no rebounding or guarding, no masses, no pulsatile masses. [] Skin: Warm, dry, no erythema, no rash. [] Extremities: No cyanosis, ROM intact, no edema. [] Neurologic: Alert and oriented X 3, no focal deficits noted. [] Psychologic: Affect normal, judgement normal, mood normal. [] (ROSLYN TAYLOR APRN) Current Patient Data Vital Signs Vital Signs Date Time Temp Pulse Resp B/P (MAP) Pulse Ox O2 Delivery O2 Flow Rate FiO2 12/01/18 12:20 98.3 68 18 164/103 (123) 100 Room Air 98.3 (ANASTASIYA HOLMAN MD) Lab Values Laboratory Tests Test 12/01/18 12:26 12/01/18 14:48 12/01/18 14:59 White Blood Count 11.3 x10^3/uL (4.0-11.0) H Red Blood Count 4.25 x10^6/uL (3.50-5.40) Hemoglobin 11.8 g/dL (12.0-15.5) L Hematocrit 36.6 % (36.0-47.0) Mean Corpuscular Volume 86 fL (79-100) Mean Corpuscular Hemoglobin 28 pg (25-35) Mean Corpuscular Hemoglobin Concent 32 g/dL (31-37) Red Cell Distribution Width 13.7 % (11.5-14.5) Platelet Count 325 x10^3/uL (140-400) Neutrophils (%) (Auto) 71 % (31-73) Lymphocytes (%) (Auto) 22 % (24-48) L Monocytes (%) (Auto) 6 % (0-9) Eosinophils (%) (Auto) 1 % (0-3) Basophils (%) (Auto) 1 % (0-3) Neutrophils # (Auto) 8.0 x10^3uL (1.8-7.7) H Lymphocytes # (Auto) 2.4 x10^3/uL (1.0-4.8) Monocytes # (Auto) 0.7 x10^3/uL (0.0-1.1) Eosinophils # (Auto) 0.1 x10^3/uL (0.0-0.7) Basophils # (Auto) 0.1 x10^3/uL (0.0-0.2) Maternal Serum HCG Beta Subunit 45 mIU/mL (0-5) H Sodium Level 140 mmol/L (136-145) Potassium Level 3.9 mmol/L (3.5-5.1) Chloride Level 103 mmol/L (98-107) Carbon Dioxide Level 30 mmol/L (21-32) Anion Gap 7 (6-14) Blood Urea Nitrogen 16 mg/dL (7-20) Creatinine 0.8 mg/dL (0.6-1.0) Estimated GFR (Cockcroft-Gault) 98.2 BUN/Creatinine Ratio 20 (6-20) Glucose Level 105 mg/dL (70-99) H Calcium Level 9.0 mg/dL (8.5-10.1) Total Bilirubin 0.6 mg/dL (0.2-1.0) Aspartate Amino Transferase (AST) 27 U/L (15-37) Alanine Aminotransferase (ALT) 26 U/L (14-59) Alkaline Phosphatase 68 U/L (46-116) Total Protein 7.2 g/dL (6.4-8.2) Albumin 3.3 g/dL (3.4-5.0) L Albumin/Globulin Ratio 0.8 (1.0-1.7) L Lipase 84 U/L (73-393) Urine Collection Type Unknown Urine Color Yellow Urine Clarity Cloudy Urine pH 7.0 Urine Specific [place] 1.020 Urine Protein Negative mg/dL (NEG-TRACE) Urine Glucose (UA) Negative mg/dL (NEG) Urine Ketones (Stick) Negative mg/dL (NEG) Urine Blood Negative (NEG) Urine Nitrite Negative (NEG) Urine Bilirubin Negative (NEG) Urine Urobilinogen Dipstick 1.0 mg/dL (0.2 mg/dL) Urine Leukocyte Esterase Small (NEG) Urine RBC 0 /HPF (0-2) Urine WBC 5-10 /HPF (0-4) Urine Squamous Epithelial Cells Mod /LPF Urine Bacteria Moderate /HPF (0-FEW) POC Urine HCG, Qualitative Hcg positive (Negative) Laboratory Tests 12/01/18 12:26 Laboratory Tests 12/01/18 12:26 (ANASTASIYA HOLMAN MD) EKG EKG 1232- SR rate 66, no STEMI, read by Dr. Holman[] (ROSLYN TAYLOR APRN) Radiology/Procedures Radiology/Procedures [] (ROSLYN TAYLOR APRN) Course & Med Decision Making Course & Med Decision Making Pertinent Labs and Imaging studies reviewed. (See chart for details) 1642 Pt signed out AMA before US were completed. She was encouraged to return to the ER by nursing staff if sx worsened. [] (ROSLYN TAYLOR APRN) Course & Med Decision Making 3:20 PM: ER PHYSICIAN ATTENDING NOTE: Dental to the emergency department via EMS , complaining of upper abdominal discomfort, which began rather suddenly at about 9 AM. It has been waxing and waning in intensity, and at this time is completely resolved. The patient states that she has had a gastric bypass in the past, and her surgeon has been watching her gallbladder, as the patient states she was told "it might have been going bad", but she has not been recommended to have her gallbladder removed. She denies any significant lower abdominal pain, vaginal bleeding or discharge. She did have a D and C that about 2 weeks ago, secondary to an IUFD, which she reports was done at [facility]. She has had intercourse since that time, however. She is not having any urinary symptoms. the patient's labs have been reviewed. I have personally seen and examined the patient, and agree with the history, physical exam, and plan, as documented by mid-level provider. (ANASTASIYA HOLMAN MD) Dragon Disclaimer Dragon Disclaimer This electronic medical record was generated, in whole or in part, using a voice recognition dictation system. (ROSLYN TAYLOR APRN) Departure Departure Impression: Primary Impression: Left against medical advice Disposition: 07 AGAINST MEDICAL ADVICE Condition: STABLE Referrals: TIARRA HUMPHRIES MD (PCP) ROSLYN TAYLOR APRN Dec 01, 2018 15:19 ANASTASIYA HOLMAN MD Dec 01, 2018 15:23
[2018-12-01 16:00] VITALS: BP 173/91
--- NOTE | 2018-12-02 08:00 | EKG ---
[facility] [address] [place] [address] Test Date: 2018-12-01 Test Time: 12:32:49 Pat Name: RIYA VALERO Department: Room: Gender: F [employer] Hel[employer]: : 1980 Requested By: ROSLYN TAYLOR Order Number: [id number] Reading MD: Maikel Tobin MD Measurements Intervals [place] Rate: 66 P: 0 GA: 130 QRS: 29 QRSD: 76 T: 36 QT: 392 QTc: 413 Interpretive Statements SINUS RHYTHM Electronically Signed On 12-02-2018 14:40:57 CDT by Maikel Tobin MD
== END 2018-12-01 16:42 | disposition left against medical advice (07) ==
LOC: ER 12:19
DX: R10.13 Epigastric pain (principal); I10 Essential (primary) hypertension; E11.9 Type 2 diabetes mellitus without complications; Z88.0 Allergy status to penicillin
CPT/HCPCS: 36415; 80053; 81001; 81025; 83690; 84702; 85025; 87086; 93005; 96374; 96375; 99284; J2270; J2405; J7030

== ENCOUNTER 2019-01-10 01:13 | Emergency (ER) | payer OTHER ==
[~2019-01-10] VITALS: Ht 165.1 cm; Wt 90.7 kg
--- NOTE | 2019-01-10 01:16 | PHYS DOC ---
Past Medical History Past Medical History: Anxiety, Depression, Diabetes-Type II, Hypertension Additional Past Medical Histor: PTSD Past Surgical History: Other Additional Past Surgical Histo: Gastric sleeve Alcohol Use: Occasionally Drug Use: None Adult General Chief Complaint Chief Complaint: ABDOMINAL PAIN HPI HPI Patient is a 38 year old female who presents with epigastric abdominal pain of 2 days duration. The pain began two nights ago at which point she thought it may be constipation or bloating so she took Gas-X and Tylenol without relief. The pain has been intermittent in nature and persisted for much of this past day and made her uncomfortable at work. This evening she took magnesium citrate at 1930 and awoke in "excruciating pain" and thus decided to call EMS for transport to the ED. The pain has been consistently worse with food intake. Localizes pain to RUQ, LUQ and epigastric regions. She has felt nauseous and weak but has not vomited. Last bowel movement was prior to calling EMS which was soft without hematochezia or melena. Patient has a history notable for sleeve gastrectomy last year. She was also seen in this ED last month for similar symptoms and left AMA after Zofran relieved her symptoms. Patient has experienced some diaphoresis and palpitations with food intake but denies chest pain, shortness of breath, fever, or chills. Denies trauma. Denies . Review of Systems Review of Systems Constitutional: Denies fever or chills [] Eyes: Denies blurred vision or diplopia [] HENT: Denies nasal congestion or sore throat [] Respiratory: Denies cough or shortness of breath [] Cardiovascular: Denies chest pain or tightness.[] GI: Reports abdominal pain, nausea and soft stool. Denies vomiting. [] : Denies dysuria or hematuria [] Integument: Denies rash or skin lesions [] Neurologic: Denies headache. Reports some lightheadedness [] Complete review of systems found to be within normal limits, except as documented in this note. Current Medications Current Medications Current Medications Medications (Trade) Dose Ordered Sig/Dania Start Time Stop Time Status Last Admin Dose Admin Famotidine (Pepcid Vial) 20 mg 1X ONCE 01/10/19 02:00 01/10/19 02:01 DC 01/10/19 01:40 20 MG Hyoscyamine (Levbid Er) 0.375 mg Q12HR 01/10/19 03:00 01/10/19 03:16 0.375 MG Info (CONTRAST GIVEN -- Rx MONITORING) 1 each PRN DAILY PRN 01/10/19 03:15 01/12/19 03:14 Iohexol (Omnipaque 240 Mg/ml) 30 ml 1X ONCE 01/10/19 03:30 01/10/19 03:31 DC 01/10/19 03:54 30 ML Iohexol (Omnipaque 300 Mg/ml) 75 ml 1X ONCE 01/10/19 03:30 01/10/19 03:31 DC 01/10/19 03:54 75 ML Ketorolac Tromethamine (Toradol 15mg Vial) 15 mg 1X ONCE 01/10/19 02:00 01/10/19 02:01 DC 01/10/19 01:40 15 MG Ondansetron HCl (Zofran) 4 mg 1X ONCE 01/10/19 03:30 01/10/19 03:31 DC Sodium Chloride 1,000 ml @ 1,000 mls/hr 1X ONCE 01/10/19 02:00 01/10/19 02:59 DC 01/10/19 01:41 1,000 MLS/HR Allergies Allergies Allergies Coded Allergies Type Severity Reaction Last Updated Verified Penicillins Allergy Intermediate hives 10/26/16 Yes Physical Exam Physical Exam Constitutional: Obese female in apparent mild discomfort but no obvious distress. [] HENT: Normocephalic, atraumatic. [] Eyes: EOMI, conjunctiva normal, no discharge. [] Cardiovascular: Heart rate normal, regular rhythm Lungs & Thorax: Bilateral breath sounds clear to auscultation [] Abdomen: Soft, tender to palpation RUQ and LUQ. No rebound tenderness, rigidity or guarding. [] Skin: Warm, dry, no erythema, no rash. [] Extremities: Radial pulses +2 b/l. Capillary refill < 2 seconds. [] Neurologic: Alert and oriented. no focal deficits noted. [] Psychologic: Affect normal, judgement normal, mood normal. [] Current Patient Data Vital Signs Vital Signs Date Time Temp Pulse Resp B/P (MAP) Pulse Ox O2 Delivery O2 Flow Rate FiO2 01/10/19 01:36 98.2 69 18 166/100 (122) 100 Room Air 98.2 Lab Values Laboratory Tests Test 5/10/19 02:30 01/10/19 02:40 Urine Collection Type Unknown Urine Color Yellow Urine Clarity Clear Urine pH 7.0 Urine Specific [place] 1.025 Urine Protein Negative mg/dL (NEG-TRACE) Urine Glucose (UA) Negative mg/dL (NEG) Urine Ketones (Stick) Negative mg/dL (NEG) Urine Blood Negative (NEG) Urine Nitrite Negative (NEG) Urine Bilirubin Negative (NEG) Urine Urobilinogen Dipstick 1.0 mg/dL (0.2 mg/dL) Urine Leukocyte Esterase Small (NEG) Urine RBC 0 /HPF (0-2) Urine WBC 1-4 /HPF (0-4) Urine Squamous Epithelial Cells Mod /LPF Urine Amorphous Sediment Present /HPF Urine Bacteria Few /HPF (0-FEW) Urine Mucus Slight /LPF Urine Test Negative (NEG) White Blood Count 9.5 x10^3/uL (4.0-11.0) Red Blood Count 4.21 x10^6/uL (3.50-5.40) Hemoglobin 11.7 g/dL (12.0-15.5) L Hematocrit 35.8 % (36.0-47.0) L Mean Corpuscular Volume 85 fL (79-100) Mean Corpuscular Hemoglobin 28 pg (25-35) Mean Corpuscular Hemoglobin Concent 33 g/dL (31-37) Red Cell Distribution Width 12.9 % (11.5-14.5) Platelet Count 300 x10^3/uL (140-400) Neutrophils (%) (Auto) 68 % (31-73) Lymphocytes (%) (Auto) 23 % (24-48) L Monocytes (%) (Auto) 8 % (0-9) Eosinophils (%) (Auto) 1 % (0-3) Basophils (%) (Auto) 1 % (0-3) Neutrophils # (Auto) 6.4 x10^3uL (1.8-7.7) Lymphocytes # (Auto) 2.2 x10^3/uL (1.0-4.8) Monocytes # (Auto) 0.7 x10^3/uL (0.0-1.1) Eosinophils # (Auto) 0.1 x10^3/uL (0.0-0.7) Basophils # (Auto) 0.0 x10^3/uL (0.0-0.2) Sodium Level 139 mmol/L (136-145) Potassium Level 3.5 mmol/L (3.5-5.1) Chloride Level 103 mmol/L (98-107) Carbon Dioxide Level 28 mmol/L (21-32) Anion Gap 8 (6-14) Blood Urea Nitrogen 24 mg/dL (7-20) H Creatinine 1.1 mg/dL (0.6-1.0) H Estimated GFR (Cockcroft-Gault) 68.0 BUN/Creatinine Ratio 22 (6-20) H Glucose Level 104 mg/dL (70-99) H Calcium Level 8.8 mg/dL (8.5-10.1) Magnesium Level 1.8 mg/dL (1.8-2.4) Total Bilirubin 0.6 mg/dL (0.2-1.0) Aspartate Amino Transferase (AST) 149 U/L (15-37) H Alanine Aminotransferase (ALT) 113 U/L (14-59) H Alkaline Phosphatase 89 U/L (46-116) Total Protein 6.8 g/dL (6.4-8.2) Albumin 3.1 g/dL (3.4-5.0) L Albumin/Globulin Ratio 0.8 (1.0-1.7) L Lipase 152 U/L (73-393) Laboratory Tests 01/10/19 02:40 Laboratory Tests 01/10/19 02:40 EKG EKG [] Radiology/Procedures Radiology/Procedures PROCEDURE: CT ABD PELV W/ORAL&IV CONTRAST Examination: CT of the abdomen pelvis with IV contrast HISTORY: History of abdominal pain, nausea, vomiting COMPARISON: 10/14/2018 TECHNIQUE: Axial CT images of the abdomen pelvis were performed with IV contrast. Coronal and sagittal reformatted performed Exposure: One or more of the following individualized dose reduction techniques were utilized for this examination: 1. Automated exposure control 2. Adjustment of the mA and/or kV according to patient size 3. Use of iterative reconstruction technique FINDINGS: The bibasilar lungs are clear. No evidence of free air identified in the abdomen The visualized liver, spleen, adrenals grossly appears unremarkable. The gallbladder is mildly distended Surgical changes identified in the stomach. The visualized pancreas grossly appears unremarkable The small bowel is nondilated. The appendix is normal Feces and gas noted in the colon The bilateral kidneys enhance symmetrically. Mild prominent appearing adnexa. Small amount of free fluid identified in the pelvis No evidence of lytic bony destructive lesion IMPRESSION: 1. Mild prominent appearing adnexa, nonspecific. Consider ultrasound pelvis, if pelvic pathology suspected. Electronically signed by: Jay Ballesteros MD (01/10/2019 4:09 AM) [facility] Course & Med Decision Making Course & Med Decision Making Pertinent Labs and Imaging studies reviewed. (See chart for details) Patient presents with upper abdominal pain. Abdomen non-peritoneal. Labs obtained and posted to chart. Symptomatic treatment provided. IV fluid hydration given. CT abdomen/pelvis without acute process. Patient reports interval improvement of symptoms. Patient stable for discharge with outpatient follow-up with PCP/GI. GI referral provided. Discussed findings and plan with patient and family, who acknowledge understanding and agreement. Dragon Disclaimer Dragon Disclaimer This electronic medical record was generated, in whole or in part, using a voice recognition dictation system. Departure Departure Impression: Primary Impression: Abdominal pain Disposition: HOME, SELF-CARE Condition: STABLE Referrals: TIARRA HUMPHRIES MD (PCP) JHON TILLMAN MD Patient Instructions: Abdominal Pain (Nonspecific) Scripts Sennosides/Docusate Sodium (Colace 2-in-1 Tablet) 1 Each Tablet 1 EACH PO QHS PRN for CONSTIPATION, #30 TAB Prov: LOS BECKETT DO 01/10/19 Hyoscyamine Sulfate (LEVSIN-SL) 0.125 Mg Tab.subl 1 TAB SL PRN Q4HRS PRN for PAIN, #60 TAB Prov: LOS BECKETT DO 01/10/19 Famotidine (PEPCID) 20 Mg Tablet 20 MG PO BID, #20 TAB Prov: LOS BECKETT DO 01/10/19 Ondansetron (ONDANSETRON ODT) 4 Mg Tab.rapdis 1 TAB PO PRN Q6-8HRS for VOMITING, #16 TAB Prov: LOS BECKETT DO 01/10/19 Problem Qualifiers Primary Impression: Abdominal pain Abdominal location: upper abdomen, unspecified Qualified Codes: R10.10 - Upper abdominal pain, unspecified LOS BECKETT DO January 10, 2019 01:16
[2019-01-10 01:36] VITALS: BP 166/100
[2019-01-10] MEDS ORDERED: KETOROLAC 15 MG/ML VIAL. IV ONE (02:00)
[2019-01-10] MEDS ORDERED: FAMOTIDINE 20 MG/2 ML VIAL IVP ONE (02:00)
[2019-01-10] MEDS ORDERED: IV NORMAL SALINE 1000ML BAG 1,000 ML IV ONE (02:00)
[2019-01-10] MEDS ORDERED: ONDANSETRON PF 4 MG/2 ML VIAL. IV ONE ×3 (02:00→03:30)
[2019-01-10 02:36] LABS: BILIRUBIN,URINE NEGATIVE (NEG); CLARITY,URINE CLEAR; COLOR,URINE YELLOW; NITRITE,URINE NEGATIVE (NEG); PROTEIN,URINE NEGATIVE (NEG-TRACE)
[2019-01-10 02:41] LABS: U PREG PATIENT NEGATIVE (NEG)
[2019-01-10 02:43] LABS: BACTERIA,URINE FEW /HPF (0-FEW); RBC,URINE 0 /HPF (0-2); SQUAMOUS EPITHELIAL CELL,UR MOD /LPF
[2019-01-10 02:44] LABS: AMORPHOUS SEDIMENT,UR PRESENT /HPF
[2019-01-10 02:50] LABS: BASO % 1 % (0-3); EOS # 0.1 x10^3/uL (0.0-0.7); EOS % 1 % (0-3); HEMATOCRIT 35.8 % (36.0-47.0); HEMOGLOBIN 11.7 g/dL (12.0-15.5); LYMPH # 2.2 x10^3/uL (1.0-4.8); LYMPH % 23 % (24-48); MEAN CORPUSCULAR HEMOGLOBIN 28 pg (25-35); MEAN CORPUSCULAR HGB CONC 33 g/dL (31-37); MEAN CORPUSCULAR VOLUME 85 fL (79-100); MONO # 0.7 x10^3/uL (0.0-1.1); MONO % 8 % (0-9); NEUT # 6.4 x10^3uL (1.8-7.7); NEUT % 68 % (31-73); PLATELET COUNT 300 x10^3/uL (140-400); RED BLOOD COUNT 4.21 x10^6/uL (3.50-5.40); RED CELL DISTRIBUTION WIDTH 12.9 % (11.5-14.5); WHITE BLOOD COUNT 9.5 x10^3/uL (4.0-11.0)
[2019-01-10] MEDS: HYOSCYAMINE ER 0.375 MG TAB.ER.12H PO SCH ×2 (02:52→03:16)
[2019-01-10 02:55] LABS: CALCIUM 8.8 mg/dL (8.5-10.1); CREATININE 1.1 mg/dL (0.6-1.0); POTASSIUM 3.5 mmol/L (3.5-5.1)
[2019-01-10 03:01] LABS: ALBUMIN 3.1 g/dL (3.4-5.0); ALBUMIN/GLOBULIN RATIO 0.8 (1.0-1.7); MAGNESIUM 1.8 mg/dL (1.8-2.4); TOTAL BILIRUBIN 0.6 mg/dL (0.2-1.0); TOTAL PROTEIN 6.8 g/dL (6.4-8.2)
[2019-01-10] MEDS ORDERED: CONTRAST GIVEN. MC PRN (03:15)
[2019-01-10] MEDS ORDERED: IOHEXOL 240 MG/ML 50ML VIAL. PO ONE (03:30)
[2019-01-10] MEDS ORDERED: IOHEXOL 300 MG/ML 100ML VIAL. IV ONE (03:30)
--- NOTE | 2019-01-10 04:12 | RAD ---
Examination: CT of the abdomen pelvis with IV contrast HISTORY: History of abdominal pain, nausea, vomiting COMPARISON: 10/14/2018 TECHNIQUE: Axial CT images of the abdomen pelvis were performed with IV contrast. Coronal and sagittal reformatted performed Exposure: One or more of the following individualized dose reduction techniques were utilized for this examination: 1. Automated exposure control 2. Adjustment of the mA and/or kV according to patient size 3. Use of iterative reconstruction technique FINDINGS: The bibasilar lungs are clear. No evidence of free air identified in the abdomen The visualized liver, spleen, adrenals grossly appears unremarkable. The gallbladder is mildly distended Surgical changes identified in the stomach. The visualized pancreas grossly appears unremarkable The small bowel is nondilated. The appendix is normal Feces and gas noted in the colon The bilateral kidneys enhance symmetrically. Mild prominent appearing adnexa. Small amount of free fluid identified in the pelvis No evidence of lytic bony destructive lesion IMPRESSION: 1. Mild prominent appearing adnexa, nonspecific. Consider ultrasound pelvis, if pelvic pathology suspected. Electronically signed by: Jay Ballesteros MD (01/10/2019 4:09 AM) [facility]
[2019-01-10] MEDS ORDERED: SENN-121 PO (04:25)
[2019-01-10] MEDS ORDERED: HYOS0.1265 SL (04:25)
[2019-01-10] MEDS ORDERED: FAMO-63 PO (04:25)
[2019-01-10] MEDS ORDERED: ONDA4TAB12 PO (04:25)
== END 2019-01-10 04:38 | disposition home or self-care (01) ==
LOC: ER 01:13
DX: R10.13 Epigastric pain (principal); R10.11 Right upper quadrant pain; R10.12 Left upper quadrant pain; R11.0 Nausea; R42 Dizziness and giddiness; I10 Essential (primary) hypertension; E11.9 Type 2 diabetes mellitus without complications; Z90.3 Acquired absence of stomach [part of]; Z88.0 Allergy status to penicillin
CPT/HCPCS: 36415; 74177; 80053; 81001; 81025; 83690; 83735; 85025; 87086; 96361; 96374; 96375; 96376; 99285; J1885; J2405; J3490; J7030; Q9966; Q9967